=== PATIENT | female | born 1955 | race Caucasian/White ===

== ENCOUNTER 2022-06-27 10:54 | Outpatient (CLI) | payer MEDICARE, SELFPAY ==
[2022-06-27 09:36] LABS: Albumin* 4.7 g/dL (3.3-5.0)
[2022-06-27 09:37] LABS: Chloride* 105 mmol/L (96-114); Potassium* 4.6 mmol/L (3.6-5.1); Sodium* 139 mmol/L (135-149)
[2022-06-27 09:39] LABS: Bilirubin Total* 0.6 mg/dL (0.1-1.5); Carbon Dioxide* 27 mmol/L (20-32); Cholesterol* 186 mg/dL (90-199); Creatinine* 0.8 mg/dL (0.5-1.5); Estimated Glomerular Filt Rate 81 ml/min; Total Protein* 7.3 g/dL (6.0-8.3)
[2022-06-27 09:40] LABS: Alanine Aminotransferase* 18 U/L (4-35); Alkaline Phosphatase* 73 U/L (40-150); Aspartate Amino Transferase* 21 U/L (12-35); Blood Urea Nitrogen* 11 mg/dL (7-30); Calcium* 9.9 mg/dL (8.4-10.6); Glucose* 92 mg/dL (60-115); HDL Cholesterol* 64 mg/dL (>=50); LDL Cholesterol Calculated 107 mg/dL (<100); Triglycerides* 76 mg/dL (40-149)
[2022-06-27 09:54] LABS: Vitamin D 25 Hydroxy* 50 ng/mL (30-80)
[2022-06-27 10:08] LABS: TSH With Reflex to FT4* 0.491 uIU/mL (0.270-4.200)
== END 2022-06-27 10:55 | disposition home or self-care (01) ==
PROVIDERS: PCP Family Medicine; Visit Provider Family Medicine
DX: E78.5 Hyperlipidemia, unspecified (principal); E03.9 Hypothyroidism, unspecified; M81.0 Age-related osteoporosis without current pathological fracture
CPT/HCPCS: 80053; 80061; 82306; 84443

== ENCOUNTER 2022-07-10 11:10 | Outpatient (CLI) | payer MEDICARE, BC, SELFPAY ==
--- NOTE | 2022-07-10 11:30 | CRLHL7_ITS ---
For Patients: As a result of the Century Cures Act, medical imaging exams and procedure reports are released immediately into your electronic medical record. You may view this report before your referring provider. If you have questions, please contact your health care provider. BILATERAL SCREENING MAMMOGRAM WITH COMPUTER-AIDED DETECTION AND TOMOSYNTHESIS TECHNIQUE: CC and MLO views were obtained. These mammographic images have been obtained using full-field digital technique. These mammographic images were interpreted with the benefit of computer-aided detection. Breast Tomosynthesis was used in this interpretation. COMPARISON FILM: 06/30/21, 06/29/20, 04/21/19. FINDINGS: The breasts are heterogeneously dense, which may obscure small masses IMPRESSION: There is no radiographic evidence for malignancy. ASSESSMENT: BI-RADS Category 1: Negative RECOMMENDATION: Routine screening mammogram in 1 year. A lay language report of this examination will be provided to the patient. Parker Mckeon M.D. Diagnostic Radiologist [email or web address] MAREK/Dictated by: Parker Mckeon MD @ 07/10/2022 12:09:00 PM (Electronically Signed)
== END 2022-07-10 11:11 | disposition home or self-care (01) ==
LOC: MAMMO 11:12
PROVIDERS: PCP Family Medicine; Visit Provider Family Medicine
DX: Z12.31 Encounter for screening mammogram for malignant neoplasm of breast (principal); R92.2 Inconclusive mammogram
CPT/HCPCS: 77063; 77067

== ENCOUNTER 2023-07-11 16:15 | Outpatient (CLI) | payer MEDICARE, BC, SELFPAY | END 2023-07-11 16:16 | disposition home or self-care (01) | LOC: NFLDREF 07-12 05:52 | PROVIDERS: PCP Family Medicine; Referring Provider Family Medicine; Visit Provider Family Medicine | DX: Z00.00 Encounter for general adult medical examination without abnormal findings (principal); E03.9 Hypothyroidism, unspecified; E78.5 Hyperlipidemia, unspecified; M81.0 Age-related osteoporosis without current pathological fracture; R53.83 Other fatigue; E55.9 Vitamin D deficiency, unspecified; Z86.39 Personal history of other endocrine, nutritional and metabolic disease | CPT/HCPCS: 80061; 82306; 84439; 84443 ==

== ENCOUNTER 2023-08-01 14:29 | Outpatient (CLI) | payer MEDICARE, BC, SELFPAY ==
--- OUTSIDE RECORDS SUMMARY | 2023-08-01 14:32 | XMS_ITS | Clinical Summary ---
Author Name Unknown Organization [facility] Address [place], [place] [address] Care Team Providers Care Tour Leader Name Role Phone Maria G Lee MD Primary Care Provider + Allergies Active Allergy Reactions Criticality Noted Date Comments Propoxyphene N-Acetaminophen Throat Swelling/Closing 07/21/2009 [place] Oil Edema 03/01/2015 Eyes swelled shut Medications Medication Sig Dispensed Refills Start Date End Date Status ARMOUR THYROID 90 mg tabletIndications:Hypo thyroidism, unspecified type TAKE 1 TABLET BY MOUTH DAILY 90 tablet 0 02/13/2016 Active atorvastatin (Lipitor) 10 mg tabletIndications:Hist ory of colon polyps Take 1 Tablet (10 mg) by mouth once daily. 0 07/19/2021 Active Active Problems Problem Noted Date Diagnosed Date Colon polyp 07/20/2021 Overview: Colonoscopy 07/2021 TA, long colon, repeat in 7 years, propofol and colowrap Graves disease 03/01/2015 Acquired hypothyroidism 03/01/2015 Immunizations Name Administration Dates Next Due Tdap 04/16/2012 Family History Medical History Relation Name Comments Cancer Father basal cell carc inoma Hypertension Father Hypertension Mother Relation Name Status Comments Father Alive Mother Alive Social History Tobacco Use Types Packs/Day Years Used Date Smoking Tobacco: Never Smokeless Tobacco: Never Alcohol Use Standard Drinks/Week Comments Yes 0 (1 standard drink = 0.6 oz pur e alcohol) 1 per week Sex and Gender Information Value Date Recorded Sex Assigned at Not on file Gender Identity Not on file Sexual Orientation Not on file Obstetrics History Last Filed Vital Signs Vital Sign Reading Time Taken Comments Blood Pressure 108/66 03/01/2015 9:17 AM CDT Pulse 72 03/01/2015 9:17 AM CDT Temperature - - Respiratory Rate - - Oxygen Saturation - - Inhaled Oxygen Concentration - - Weight 59.9 kg (132 lb) 03/01/2015 9:17 AM CDT Height 162.6 cm (5' 4.02) 03/01/2015 9:17 AM CD T Body Mass Index 22.65 03/01/2015 9:17 AM CDT Plan of Treatment Health Maintenance Due Date Last Done Comments Depression screening for age 12+ 1967 BMI (ht and wt on same day) for age 18+ 12/23/1973 Hepatitis C screening for ag e 18-79 12/23/1973 Lipids for age 45-75 12/23/2000 Zoster (shingles) series for age 50+ (1 of 2) 12/23/2005 Mammogram for age 45-75 01/22/2017 01/23/2016, 12/02 DEXA/DXA scan for age 65+ 12/23/2020 Medicare Wellness for age 65+ 12/23/2020 Pneumococcal series for age 65+ (1 of 1 - PCV) 12/23/2020 Tetanus booster 04/16/2022 04/16/2012 COVID-19 vaccine series (2022- season) 2023 05/04/2021, 10/25/2020, 10/04/2020 Influenza for age 65+ 03/15/2023 Colonoscopy through age 75 07/19/202807/19, 07/19/2021, 04/25/2016, Additional history exists Tdap Completed 04/16/2012 Care Teams Tour Leader Relationship Specialty Start Date End Date Maria G Lee MD [address] [place] [address] PCP - General Family Practice 07/19/21
--- NOTE | 2023-08-01 14:40 | CRLHL7_ITS ---
For Patients: As a result of the Century Cures Act, medical imaging exams and procedure reports are released immediately into your electronic medical record. You may view this report before your referring provider. If you have questions, please contact your health care provider. BILATERAL SCREENING MAMMOGRAM WITH COMPUTER-AIDED DETECTION AND TOMOSYNTHESIS TECHNIQUE: CC and MLO views were obtained. These mammographic images have been obtained using full-field digital technique. These mammographic images were interpreted with the benefit of computer-aided detection. Breast Tomosynthesis was used in this interpretation. COMPARISON FILM: 07/10/22, 06/30/21, 06/29/20. FINDINGS: The breasts are heterogeneously dense, which may obscure small masses. IMPRESSION: There is no radiographic evidence for malignancy. ASSESSMENT: BI-RADS Category 1: Negative RECOMMENDATION: Routine screening mammogram in 1 year. A lay language report of this examination will be provided to the patient. Parker Mckeon M.D. Diagnostic Radiologist [email or web address] SP/Dictated by: Parker Mckeon MD @ 08/02/2023 11:00:00 AM (Electronically Signed)
== END 2023-08-01 14:30 | disposition home or self-care (01) ==
LOC: MAMMO 14:30
PROVIDERS: PCP Family Medicine; Visit Provider Family Medicine
DX: Z12.31 Encounter for screening mammogram for malignant neoplasm of breast (principal); R92.2 Inconclusive mammogram
CPT/HCPCS: 77063; 77067

== ENCOUNTER 2023-09-04 19:18 | Outpatient (CLI) | payer MEDICARE, BC, SELFPAY ==
--- OUTSIDE RECORDS SUMMARY | 2023-09-04 19:20 | XMS_ITS | Clinical Summary ---
Author Name Unknown Organization [facility] Address [place], [place] [address] Care Team Providers Care Quality Systems Engineer Name Role Phone Maria G Lee MD Primary Care Provider + Allergies Active Allergy Reactions Criticality Noted Date Comments Propoxyphene N-Acetaminophen Throat Swelling/Closing 07/21/2009 [place] Oil Edema 03/01/2015 Eyes swelled shut Medications [...] history exists Tdap Completed 04/16/2012 Care Teams Quality Systems Engineer Relationship Specialty Start Date End Date Maria G Lee MD [address] [place] [address] PCP - General Family Practice 07/19/21
--- NOTE | 2023-09-18 13:23 | W.PM.SLEEP ---
Sleep Study Details Details Interpreting Provider: Lamine Date of Sleep Study: 09/04/23 Sleep Study Details: STUDY TYPE:? Home unattended. It is not clear from the notes if this study was done with or without the patient's dental appliance in place ? BMI:? BMI 23.9 ORDERING PROVIDER:? Lamine INDICATION:? Concerns about sleep apnea ? SLEEP SUMMARY:? 428.5 minutes monitored RESPIRATORY SUMMARY:? AHI rule 1A 9.5, CMS guideline 8.1. Supine AHI 22.1, right lateral 10.1, left lateral 4.9 Low oxygen 87 1.7% of study oxygen less than 90% Snoring 24.2% PERIODIC LIMB MOVEMENTS OF SLEEP:? Not recorded during home study CARDIAC:? Range 60-91, mean 69.5 IMPRESSION:? Mild obstructive sleep apnea much worse in the supine position. The patient's left best in the lateral position with the AHI was only 4.9 RECOMMENDATION: Treatment options would include sleeping in left lateral position, CPAP AutoSet 4-17 or possibly a new dental appliance.
--- NOTE | 2023-10-30 09:03 | W.PM.SLEEP ---
Sleep Study Details Details Interpreting Provider: Lamine Date of Sleep Study: 09/04/23 Sleep Study Details: STUDY TYPE:? This is a 2 night study the 1st night done without appliance in the 2nd night down with appliance ? BMI:? 23.9 ORDERING PROVIDER:? Lamine INDICATION:? To determine baseline level of sleep apnea to see if appliance is working ? SLEEP SUMMARY:? Without appliance 428.5 minutes, with appliance for and 27.6 minutes RESPIRATORY SUMMARY:? AHI without appliance 8.1, AHI with appliance 6.7 Supine AHI without appliance 22 with appliance 14.7 Low oxygen without appliance 87, with appliance 82 1.7% of the study without appliance oxygen was below 90%, 8.3% of study with appliance oxygen was below 90% Snoring without appliance 24.2%, with appliance 2.8% PERIODIC LIMB MOVEMENTS OF SLEEP:? Not recorded during home study CARDIAC: Range of 60-91, mean 69.5 this was similar both with and without the appliance name IMPRESSION:? Mild supine dependent obstructive sleep apnea persists both with and without appliance. Snoring was markedly diminished by appliance from 24.2% without appliance to 2.8% with appliance. RECOMMENDATION: Recommend trial of CPAP either with or without her dental appliance in place.
== END 2023-09-05 19:19 | disposition home or self-care (01) ==
LOC: SLEEP 19:19
PROVIDERS: PCP Family Medicine; Visit Provider Otolaryngology
DX: G47.33 Obstructive sleep apnea (adult) (pediatric) (principal); R06.83 Snoring
CPT/HCPCS: 95806

== ENCOUNTER 2023-11-11 07:56 | Outpatient (CLI) | payer MEDICARE, BC, SELFPAY ==
--- OUTSIDE RECORDS SUMMARY | 2023-11-13 07:09 | XMS_ITS | Clinical Summary ---
Author Name Unknown Organization [facility] Address [place], [place] [address] Care Team Providers Care Gas Meter Mechanic Name Role Phone Maria G Lee MD Primary Care Provider + Allergies Active Allergy Reactions Criticality Noted Date Comments Propoxyphene N-Acetaminophen Throat Swelling/Closing 07/21/2009 [place] Oil Edema 03/01/2015 Eyes swelled shut Medications [...] Tetanus booster 04/16/2022 04/16/2012 COVID-19 vaccine series (2022-24 season) 2023 05/04/2021, 10/25/2020, 10/04/2020 Influenza for age 65+ 03/15/2024 Colonoscopy through age 75 07/19/202807/19, 07/19/2021, 04/25/2016, Additional history exists Tdap Completed 04/16/2012 Procedures Procedure Name Priority Date/Time Associated Diagnosis Comments COLONOSCOPY 07/19/2021 8:53 AM BUSINESS SUPPORT ADMINISTRATOR SCAN-MAMMOGRAPHY REPORT 01/23/2016 12:00 AM CDT from Last 3 Months or Most Recently Relevant to Health Maintenance Results * COLONOSCOPY (07/19/2021 8:53 AM BUSINESS SUPPORT ADMINISTRATOR) 07/19/2021 8:53 AM BUSINESS SUPPORT ADMINISTRATOR Narrative Transcriptions Eddie Stewart MD - 07/19/2021 10:33 AM CST Patient Name: Acacia Weaver Procedure Date: 07/19/2021 Gender: Female Date of : 1955 Admit Type: Outpatient Procedure: Colonoscopy Proceduralist: Eddie Stewart MD , Lupe Pelaez RN(Nurse) Indications/Pre-Op Diagnosis: High risk colon cancer surveillance:Personal history of adenoma less than 10 mm in size, Last colonoscopy: April 2016 Medications: Fentanyl 150 micrograms IV, Midazolam 4 mgIV, The level of sedation administered wasmoderate Procedure Description: The patient had risks, benefits and alternatives explained to andgave informed consent. The patient had a stable cardiopulmonary status and judged an adequate candidate for conscious sedation. The colonoscope was passed through the anus and advanced to thececum, identified by appendiceal orifice and ileocecal valve. Thecolonoscopy was performed without difficulty. The patient tolerated the procedure well. The quality of the bowel preparation was good. The ileocecal valve, appendiceal orifice, and rectum were photographed. Complications: No immediate complications. Estimated Blood Loss & Specimen: Estimated blood loss: none. Specimen collected - Yes and sent to Laboratory Findings: The perianal and digital rectal examinations were normal. A 3 mm polyp was found in the ascending colon. The polyp was sessile. The polyp was removed with a cold biopsy forceps. Resection and retrieval were complete. The colon (entire examined portion) was significantly redundant. The exam was otherwise without abnormality. Impressions/Post-Op Diagnosis: - One 3 mm polyp in the ascending colon, removed with a cold biopsy forceps. Resected and retrieved. - Redundant colon. - The examination was otherwise normal. Recommendation: - Patient has a contact number available for emergencies. The signsand symptoms of potential delayed complications were discussed with the patient. Return to normal activities tomorrow. Written discharge instructions were provided to the patient. - Resume previous diet. - Continue present medications. - Await pathology results. - Repeat colonoscopy in 7 years for surveillance. - Patient's sedation for a repeat study will require Anesthesia staff assistance and a colwrap. Moderate Sedation: Moderate (conscious) sedation was administered by the endoscopy nurse and supervised by the endoscopist. The following parameters were monitored: oxygen saturation, heart rate, respiratory rate, blood pressure, adequacy of pulmonary ventilation and reponse to care. Please refer to the patient's medical record flowsheets and nursing notes for moderate sedation details. Total physician intraservice time was 38 minutes. Eddie Stewart MD 07/19/2021 10:33:20 AM This report has been signed electronically. Note Initiated On: 07/19/2021 8:53 AM Procedure Code(s): --- Professional --- 32525, Colonoscopy, flexible; with biopsy, single or multiple Diagnosis Code(s): --- Professional --- Z86.010, Personal history of colonicpolyps K63.5, Polyp of colon Q43.8, Other specified congenitalmalformations of intestine CPT copyright 2020 [employer]. All rights reserved. The codes documented in this report are preliminary and upon food quality tester reviewmay be revised to meet current compliance requirements. Scope In: 9:51:43 AM Scope Withdrawal Time 0 hours 8 minutes 2 seconds Scope Out: 10:28:43 AM Eddie Stewart MD PROCEDURE ORD * SCAN-MAMMOGRAPHY REPORT (01/23/2016 12:00 AM CDT) Anatomical Region Laterality Modality Other Scanner OTHER from Last 3 Months or Most Recently Relevant to Health Maintenance Care Teams Gas Meter Mechanic Relationship Specialty Start Date End Date Maria G Lee MD [address] [place] [address] PCP - General Family Practice 07/19/21
== END 2023-11-11 07:57 | disposition home or self-care (01) ==
LOC: NFLDREF 11-13 07:08
PROVIDERS: PCP Family Medicine; Referring Provider Family Medicine; Visit Provider Family Medicine
DX: E03.9 Hypothyroidism, unspecified (principal)
CPT/HCPCS: 84439; 84443

== ENCOUNTER 2024-02-11 08:03 | Outpatient (CLI) | payer MEDICARE, BC, SELFPAY ==
--- OUTSIDE RECORDS SUMMARY | 2024-02-12 04:45 | XMS_ITS | Clinical Summary ---
Author Organization [facility] Address [place], [place] [address] Care Team Providers Care Wax Pattern Repairer Name Role Phone Maria G Lee MD Primary Care Provider + Allergies Active Allergy Reactions Criticality Noted Date Comments Propoxyphene N-Acetaminophen Throat Swelling/Closing 07/21/2009 [place] Oil Edema 03/01/2015 Eyes swelled shut Medications [...] Associated Diagnosis Comments COLONOSCOPY 07/19/2021 8:53 AM JET WORKER SCAN-MAMMOGRAPHY REPORT 01/23/2016 12:00 AM CDT from Last 3 Months or Most Recently Relevant to Health Maintenance Results * COLONOSCOPY (07/19/2021 8:53 AM JET WORKER) 07/19/2021 8:53 AM JET WORKER Narrative Transcriptions Eddie Stewart MD - 07/19/2021 [...] 8:53 AM Procedure Code(s): --- Professional --- 93416, Colonoscopy, flexible; with biopsy, single or multiple Diagnosis Code(s): --- Professional --- Z86.010, Personal history of colonicpolyps K63.5, Polyp of colon Q43.8, Other specified congenitalmalformations of intestine CPT copyright 2020 [place] [employer]. All rights reserved. The codes documented in this report are preliminary and upon computer language coder reviewmay be revised to meet current compliance requirements. Scope In: 9:51:43 AM Scope Withdrawal Time 0 hours 8 minutes 2 seconds Scope Out: 10:28:43 AM Eddie Stewart MD PROCEDURE ORD * SCAN-MAMMOGRAPHY REPORT (01/23/2016 12:00 AM CDT) Anatomical Region Laterality Modality Other Scanner OTHER from Last 3 Months or Most Recently Relevant to Health Maintenance Care Teams Wax Pattern Repairer Relationship Specialty Start Date End Date Maria G Lee MD [address] [place] [address] PCP - General Family Practice 07/19/21
== END 2024-02-11 08:04 | disposition home or self-care (01) ==
LOC: NFLDREF 02-12 04:43
PROVIDERS: PCP Family Medicine; Referring Provider Family Medicine; Visit Provider Family Medicine
DX: E03.9 Hypothyroidism, unspecified (principal); E78.5 Hyperlipidemia, unspecified
CPT/HCPCS: 80061; 84439; 84443

== ENCOUNTER 2024-07-16 08:10 | Outpatient (CLI) | payer MEDICARE, BC, SELFPAY | END 2024-07-16 08:11 | disposition home or self-care (01) | LOC: NFLDREF 07-18 19:37 | PROVIDERS: PCP Family Medicine; Referring Provider Family Medicine; Visit Provider Family Medicine | DX: R53.83 Other fatigue (principal); E78.5 Hyperlipidemia, unspecified; E03.9 Hypothyroidism, unspecified; E55.9 Vitamin D deficiency, unspecified; M81.0 Age-related osteoporosis without current pathological fracture | CPT/HCPCS: 80053; 80061; 82306; 84443 ==

== ENCOUNTER 2024-08-06 10:04 | Outpatient (CLI) | payer MEDICARE, BC, SELFPAY ==
--- NOTE | 2024-08-06 10:15 | CRLHL7_ITS ---
For Patients: As a result of the Century Cures Act, medical imaging exams and procedure reports are released immediately into your electronic medical record. You may view this report before your referring provider. If you have questions, please contact your health care provider. BILATERAL SCREENING MAMMOGRAM WITH COMPUTER-AIDED DETECTION AND TOMOSYNTHESIS TECHNIQUE: CC and MLO views were obtained. These mammographic images have been obtained using full-field digital technique. These mammographic images were interpreted with the benefit of computer-aided detection. Breast Tomosynthesis was used in this interpretation. COMPARISON FILM: 08/01/23, 07/10/22, 06/30/21. FINDINGS: The breasts are heterogeneously dense, which may obscure small masses. IMPRESSION: There is no radiographic evidence for malignancy. ASSESSMENT: BI-RADS Category 1: Negative RECOMMENDATION: Routine screening mammogram in 1 year. A lay language report of this examination will be provided to the patient. Pradeep Ahumada M.D. Diagnostic/Nuclear Medicine Radiologist [email or web address] SARINA/matilda SP/Dictated by: Pradeep Ahumada MD @ 08/06/2024 11:39:00 AM (Electronically Signed)
--- NOTE | 2024-08-06 14:00 | CRLHL7_ITS ---
For Patients: As a result of the Century Cures Act, medical imaging exams and procedure reports are released immediately into your electronic medical record. You may view this report before your referring provider. If you have questions, please contact your health care provider. XR DXA BONE MINERAL DENSITY (BMD) Current height (in): 63.0. Weight (lb): 140.0. Menopause age: 45. Ethnicity: White. Reason for exam: Osteoporosis. 1. Have you had a previous hip or vertebral fracture? No. 2. Have you had any fractures during your adult life which did not result from significant trauma (e.g., auto accident)? No. 3. Did either of your parents have a hip fracture? No. 4. Do you smoke? No. 5. Have you ever taken Glucocorticoids? No. 6. Do you have rheumatoid arthritis? No. 7. Do you have secondary osteoporosis? No. 8. Do you drink 3 or more alcoholic drinks per day? No. 9. Are you being treated for osteoporosis? No. 10. Have you ever taken any of the following medications: Actonel, Evista, Fosamax, Miacalcin, Reclast, Boniva, Forteo, HRT (i.e. estrogen/hormone therapy), Protelos, Prolia, Vitamin D, Calcium, other ??? please specify. ANSWER: Yes, Fosamax, vitamin D. 11. Do you have any of the following medical conditions: Anorexia or bulimia, asthma or emphysema, end stage renal disease, hyperparathyroidism, any seizure disorders, cancer, inflammatory bowel diseases, hysterectomy, other ??? please specify. ANSWER: No. 12. What was your maximum height (inches)? 63. 13. Do you perform weight bearing exercise regularly? Yes. 14. Do you regularly consume dairy products? No. 15. Do you drink caffeinated beverages? No. 16. At what age did your period start? 13. 17. Are you premenopausal? No. 18. How many full-term pregnancies have you had? 2. 19. Have you ever missed your period for more than 6 months in a row (not including or menopause)? No. TECHNIQUE: Bone mineral density study was performed using the [employer]. FINDINGS: The results of the study expressed as bone mineral density (BMD) are as follows: Lumbar spine L1 to L4: BMD: 0.801 g/cm2. T-score: -2.2. Z-score: -0.2 Neck Left: BMD: 0.564 g/cm2. T-score: -2.6. Z-score: -0.9 Right: BMD: 0.585 g/cm2. T-score: -2.4. Z-score: -0.7 Total Left: BMD: 0.791 g/cm2. T-score: -1.2. Z-score: 0.2 Right: BMD: 0.852 g/cm2. T-score: -0.7. Z-score: 0.7 IMPRESSION: Osteoporosis. *Comparison exams done prior to 12/2019 were performed on different unit, [facility]. COMPARISON: Compared with scan of 06/29/2020, the bone mineral density has decreased by 4.7 percent at the spine and increased by 7.1 percent at the hip. Reina Baker M.D. Diagnostic/Breast Radiologist [email or web address] Transcribed: 9:54 am DW/Dictated by: Reina Baker MD @ 08/07/2024 7:28:00 AM (Electronically Signed)
== END 2024-08-06 10:05 | disposition home or self-care (01) ==
LOC: MAMMO 10:05
PROVIDERS: PCP Family Medicine; Visit Provider Family Medicine
DX: Z12.31 Encounter for screening mammogram for malignant neoplasm of breast (principal); R92.333 Mammographic heterogeneous density, bilateral breasts; M81.0 Age-related osteoporosis without current pathological fracture
CPT/HCPCS: 77063; 77067; 77080

== ENCOUNTER 2024-08-14 08:46 | Outpatient (RCR) | payer MEDICARE, BC, SELFPAY ==
--- NOTE | 2024-08-12 10:22 | URNOTE ---
Request received for authorization for Reclast ([id number]). Prior authorization is not required as services are based on medical necessity and follow Medicare guidelines.
[2024-08-14 08:54] VITALS: BP 124/79; PULSE 86; RESP 16; TEMP 36.4; O2SAT 96
== END 2025-02-10 23:59 | disposition home or self-care (01) ==
LOC: CCIC 08:46
PROVIDERS: PCP Family Medicine; Visit Provider Clinical Nurse Specialist
DX: M81.0 Age-related osteoporosis without current pathological fracture (principal)
CPT/HCPCS: 96374; J3489

== ENCOUNTER 2024-10-23 14:07 | Emergency (ER) | payer MEDICARE, BC, SELFPAY ==
[2024-10-23] VITALS (13 sets, daily range): BP systolic 146–156; BP diastolic 88–104; PULSE 82–95; RESP 18; TEMP 36.2; O2SAT 90–99; BMI 24.8
--- OUTSIDE RECORDS SUMMARY | 2024-10-23 14:09 | XMS_ITS | Clinical Summary ---
Author Organization [facility] Address [address] [place] [id number] Care Team Providers Care Office Nurse Practitioner Name Role Phone Maria G Lee MD Primary Care Provider + Allergies Active Allergy Reactions Criticality Noted Date Comments Propoxyphene N-Acetaminophen Throat Swelling/Closing 07/21/2009 [place] Oil Edema 03/01/2015 Eyes swelled shut Medications ARMOUR THYROID 90 mg tabletIndication s:Hypothyroidism , unspecified type TAKE 1 TABLET BY MOUTH DAILY 90 tablet 0 02/13/2016 Active atorvastatin (Lipitor) 10 mg tabletIndication s:History of colon polyps Take 1 Tablet (10 mg) by mouth once daily. 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 file Not on file Not on file Obstetrics History Last Filed [...] 18-79 12/23/1973 Lipids for age 45-75 12/23/2000 Pneumococcal series for age 50+ (1 of 1 - PCV) 12/23/2005 Zoster (shingles) series for age 50+ (1 of 2) 12/23/2005 Mammogram for age 45-75 01/22/2017 01/23/2016, 12/02 DEXA/DXA scan for age 65+ 12/23/2020 Medicare Wellness for age 65+ 12/23/2020 Tetanus booster 04/16/2022 04/16/2012 COVID-19 vaccine series ( season) 2024 05/04/2021, 10/25/2020, 10/04/2020 Influenza Vaccine (Season Ended) 2025 Colonoscopy through age 75 07/19/202807/19, 07/19/2021, 04/25/2016, Additional history exists RSV vaccine for adults or (1 - 1-dose 75+ series) 12/23/2030 Tdap Completed 04/16/2012 Procedures Procedure Name Priority Date/Time Associated Diagnosis Comments COLONOSCOPY 07/19/2021 8:53 AM HOSPITAL ADMINISTRATIVE ASSISTANT SCAN-MAMMOGRAPHY REPORT 01/23/2016 12:00 AM CDT from Last 3 Months or Most Recently Relevant to Health Maintenance Results * COLONOSCOPY (07/19/2021 8:53 AM HOSPITAL ADMINISTRATIVE ASSISTANT) 07/19/2021 8:53 AM HOSPITAL ADMINISTRATIVE ASSISTANT Narrative Transcriptions Eddie Stewart MD - 07/19/2021 10:33 AM CST Patient Name: Zay Weaver Procedure Date: 07/19/2021 Gender: Female Date [...] 8:53 AM Procedure Code(s): --- Professional --- 69815, Colonoscopy, flexible; with biopsy, single or multiple Diagnosis Code(s): --- Professional --- Z86.010, Personal history of colonicpolyps K63.5, Polyp of colon Q43.8, Other specified congenitalmalformations of intestine CPT copyright 2020 [employer] [place] [employer]. All rights reserved. The codes documented in this report are preliminary and upon extraction machine operator reviewmay be revised to meet current compliance requirements. Scope In: 9:51:43 AM Scope Withdrawal Time 0 hours 8 minutes 2 seconds Scope Out: 10:28:43 AM us Eddie Stewart MD PROCEDURE ORD Final Res ult * SCAN-MAMMOGRAPHY REPORT (01/23/2016 12:00 AM CDT) Anatomical Region Laterality Modality Other us Scanner OTHER Final Result from Last 3 Months or Most Recently Relevant to Health Maintenance Insurance PREFERRED ONE-OPEN ACCESS BLUE CROSS [employer] BLUE MR PB ONLY Care Teams Office Nurse Practitioner Relationship Specialty Start Date End Date Maria G Lee MD [address] [place] [address] PCP - General Family Practice 07/19/21
--- NOTE | 2024-10-23 14:21 | ED.GENADULT ---
HPI - General Adult General Time Seen by Provider: 14:21 Date Seen: 10/23/24 Chief complaint: Shoulder Injury/Pain Stated complaint: Fell off Horse Time Seen by Provider: 10/23/24 14:11 Source: patient and RN notes reviewed Mode of arrival: ambulatory Limitations: no limitations History of Present Illness HPI narrative: This 68-year-old female is coming in with right shoulder/clavicle pain. She thinks she may have broke her clavicle falling off her horse. About an hour prior to her arrival, she was riding her 14 hand bony/hoarse. He spoke did something, move sideways abruptly and she went off landing on her right shoulder. She was wearing a helmet, no loss of consciousness, no head pain, no facial or neck pain. She is having no difficulty breathing, no significant pain with breathing outside of pain in the right upper chest wall. No numbness tingling in her hand. She does not have pain into the right extremity at all. No abdominal pain, did not injure her left arm or legs at all. She is not on any blood thinners. Related Data Home Medications ?Medication ?Instructions ?Recorded ?Confirmed Lactobacillus acidophilus 10 mg PO QDAY 07/03/22 08/14/24 cholecalciferol (vitamin D3) 10 10 mcg PO QDAY 07/03/22 08/14/24 mcg (400 unit) capsule krill oil 500 mg capsule mg PO 07/03/22 07/23/24 multivitamin (Multiple Vitamins 1 tab PO QAM 07/03/22 08/14/24 tablet) Previous Rx's ?Medication ?Instructions ?Recorded atorvastatin 10 mg tablet 10 mg PO .Bedtime #90 tabs 07/23/24 levothyroxine 125 mcg tablet 125 mcg PO DAILY #90 tabs 07/23/24 oxycodone 5 mg tablet 5 mg PO Q6H PRN pain #10 tabs 10/23/24 Allergies Allergy/AdvReac Type Severity Reaction Status Date / Time propoxyphene Allergy Severe Anaphylaxis Verified 08/14/24 09:06 salmon oil Allergy Intermediate eye Verified 08/14/24 09:06 swelling SALMON Allergy Unknown Swelling Uncoded 07/23/24 09:29 of the Eye Review of Systems Status of ROS: Reports: 6 or more systems reviewed and unremarkable except as noted in History and below [facility] Medical History Vitamin D deficiency ?E55.9 - Vitamin D deficiency, unspecified (ICD-10) Persistent insomnia ?G47.00 - Insomnia, unspecified (ICD-10) Osteoporosis (07/2018) ?M81.0 - Age-related osteoporosis without current pathological fracture (ICD-10) Obstructive sleep apnea syndrome (2013) ?G47.33 - Obstructive sleep apnea (adult) (pediatric) (ICD-10) History of Graves' disease (2001) ?Z86.39 - Personal history of other endocrine, nutritional and metabolic disease (ICD-10) History of basal cell carcinoma (2013) ?Z85.828 - Personal history of other malignant neoplasm of skin (ICD-10) Dyslipidemia ?E78.5 - Hyperlipidemia, unspecified (ICD-10) Acquired hypothyroidism ?E03.9 - Hypothyroidism, unspecified (ICD-10) Surgical History History of radioactive iodine thyroid ablation (2001) ?Z92.3 - Personal history of irradiation (ICD-10) History of decompression of orbit (2002) ?Z98.890 - Other specified postprocedural states (ICD-10) History of colonoscopy with polypectomy (2012) ?Z98.890 - Other specified postprocedural states (ICD-10) ?Z86.010 - Personal history of colonic polyps (ICD-10) History of carpal tunnel release of both wrists ?Z98.890 - Other specified postprocedural states (ICD-10) History of benign breast biopsy ?Z98.890 - Other specified postprocedural states (ICD-10) Family History Father Atrial fibrillation Maternal Grandmother Breast cancer, Onset Age: 50 Maternal Grandfather Myocardial infarction, Onset Age: 60 Paternal Grandfather Myocardial infarction, Onset Age: 60 Mother Osteoarthritis Social History 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: , RN, 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[employer], 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, 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 exercises daily- daily takes care of 3 horses n(Ivan, Dean, daughters [place]), [employer] gym, swim, , walks every day 4-5 miles non-smoker social drinker- 1-2/week What is your current living situation?: I presently have a place to live Problems where you live: no known problems In the past 12 months, utilities in danger of being shut off: no In past 12 months, lack of transportation kept you from medical appts, meetings, work, or getting things needed for daily living: no In the past 12 mos, have been you worried that your food would run out before you had money to buy more?: never true In the past 12 mos, the food you bought just didn't last and you didn't have money to buy more?: never true Smoking Status: Never smoker How often does anyone, including family, friends and others, physically hurt you: never How often does anyone, including family, friends and others, insult or talk down to you: never How often does anyone, including family, friends and others, threaten you with harm: never How often does anyone, including family, friends and others, scream or curse at you: never Exam Const: Vital Signs, click to edit/add: Vital Signs - 24 hr 10/23/24 14:11 10/23/24 14:19 10/23/24 14:20 Temperature 97.1 F L Pulse Rate 89 88 Pulse Rate [Pulse Oximeter] 95 Respiratory Rate 18 Blood Pressure 153/95 H Blood Pressure [Le ft Upper Arm] 153/95 H Pulse Oximetry 98 94 96 Oxygen Delivery Me thod Room Air 10/23/24 14:21 10/23/24 14:21 10/23/24 14:30 Temperature Pulse Rate 90 90 86 Pulse Rate [Pulse Oximeter] Respiratory Rate Blood Pressure 150/88 H 150/88 H Blood Pressure [Le ft Upper Arm] Pulse Oximetry 98 98 90 Oxygen Delivery Me thod 10/23/24 14:40 10/23/24 14:45 Temperature Pulse Rate 84 85 Pulse Rate [Pulse Oximeter] Respiratory Rate Blood Pressure Blood Pressure [Le ft Upper Arm] Pulse Oximetry 95 96 Oxygen Delivery Me thod Zya is a 68-year-old female that is alert, interactive, no apparent distress. Sclera clear, conjugate gaze. Face atraumatic, able to speak in complete sentences. No midline tenderness of her neck, neck is supple with good range of motion. No masses or adenopathy. She has visible bruising and swelling starting in that right upper chest wall, could be overlying the distal clavicle. She does not have any pain around the glenohumeral fossa at this time. No pain along the upper arm, elbow forearm wrist or hand on the right side. Neurovascular is intact in her right extremity. Lungs are clear, good air entry, no wheezing or crackles, no tachypnea, no accessory muscle use. CV regular rate and rhythm, no murmur, normal S1-S2, no S3-S4. No pain along her sternum. Abdomen is soft, nontender, nondistended, no organomegaly, rebound or guarding. Patient was ambulatory into the ED of her own accord. Documenting provider has reviewed patient's vital signs: yes Course Course ED Course: Will obtain portable chest x-ray to see imaging of this upper chest. Have discussed with patient and her based on what I see on the imaging, may order chest CT. If there is any appearance upper rib fractures, will need chest CT imaging. Reevaluation(s) Time of Reevaluation #1: 14:44 Reevaluation #1: Patient has obvious clavicle fracture, do not see other bony pathology in this upper chest wall on my preliminary review. Will get dedicated clavicle imaging at this time. Time of Reevaluation #2: 15:00 Reevaluation #2: Patient was complaining of increased pain after going to x-ray. She had toast for breakfast, ate a Eugenie around lunch time but otherwise really has not ate much today. Outside of using some Tylenol No. 3, really has not taken much for pain meds in the past. Will do a trial of 2.5 mg oral oxycodone and a 1000 mg oral Tylenol, see if she tolerates the oxycodone. Will also premedicate with some Zofran. Consultations Consultation #1: Spoke with Pato Delgado from Orthopedics. Will have patient follow-up with them next week, he does think that there is a likelihood surgical repair for this. She is currently neurologically intact, no tenting of the skin and does not require any emergent intervention. Sling is been provided. Will update patient on this in prepare for discharge. Will discuss pain management with her as well. Time: 15:31 Vital Signs Vital signs: Initial Vital Signs Temperature 97.1 F L 10/23/24 14:11 Temperature Source Temporal Artery Scan 10/23/24 14:11 Pulse Rate 95 10/23/24 14:11 Respiratory Rate 18 10/23/24 14:11 Blood Pressure 153/95 H 10/23/24 14:11 Blood Pressure Mean 114 H 10/23/24 14:11 Blood Pressure Position Supine 10/23/24 14:11 Pulse Oximetry 98 10/23/24 14:11 Oxygen Delivery Method Room Air 10/23/24 14:11 Vital Signs Temperature 97.1 F L 10/23/24 14:11 Pulse Rate 95 10/23/24 14:11 Respiratory Rate 18 10/23/24 14:11 Blood Pressure 153/95 H 10/23/24 14:11 Pulse Oximetry 98 10/23/24 14:11 Oxygen Delivery Method Room Air 10/23/24 14:11 Temperature 97.1 F L 10/23/24 14:11 Pulse Rate 85 10/23/24 14:45 Respiratory Rate 18 10/23/24 14:11 Blood Pressure 150/88 H 10/23/24 14:21 Pulse Oximetry 96 10/23/24 14:45 Oxygen Delivery Method Room Air 10/23/24 14:11 Medications Administered Medications: Discontinued Medications Generic Name Dose Route Start Last Admin Trade Name Freq PRN Reason Stop Dose Admin Acetaminophen 1,000 mg 10/23/24 15:01 10/23/24 15:17 Acetaminophen 500 Mg Tablet PO 10/23/24 15:02 1,000 mg ONCE ONE Administration Ondansetron HCl 4 mg 10/23/24 15:02 10/23/24 15:17 Ondansetron Odt 4 Mg Tab PO 10/23/24 15:03 4 mg ONCE ONE Administration Oxycodone HCl 2.5 mg 10/23/24 15:01 10/23/24 15:17 Oxycodone 1 Mg/Ml Oral Soln PO 10/23/24 15:02 2.5 mg ONCE ONE Administration Medical Decision Making Imaging Data Chest x-ray: Attestation: I have reviewed the pertinent imaging results. My impression: Right clavicle fracture noted on my preliminary review. Radiologist's impression: Patient: ZAY MORRIS Facility:[facility] Patient ID:?[id number] Site Patient ID:?[id number]. Site :?[id number] Study:?XRay-Chest Portable one view-10/23/2024 2:49:07 PM Ordering Physician:Dilcia Joshua Final Report: INDICATION: Chest pain. TECHNIQUE: Chest 1 views. COMPARISON: None. FINDINGS: Cardiovascular and mediastinum: Heart size and vasculature are normal in caliber and appearance. Lungs and pleural spaces: No sign of infiltrate or mass. No sign of pleural effusion. No pneumothorax. Bones and soft tissues: Acute displaced right mid clavicular fracture with superior elevation of the proximal fragment. IMPRESSION: Acute displaced right mid clavicular fracture with superior elevation of the proximal fracture. No acute cardiopulmonary abnormality. Dictated by Carlos Henry MD @ 10/23/2024 3:09:08 PM (Electronic Signature) XR right clavicle: Attestation: I have reviewed the pertinent imaging results. My impression: Bills visualize, clavicle fracture definitely noted. Radiologist's impression: Patient: ZAY MORRIS Facility:?[facility] Patient ID:?[id number] Site Patient ID:?[id number]. Site :?[id number] Study:?XRay-Extremity Right CLAVICLE 2V-10/23/2024 3:04:33 PM Ordering Physician:Dilcia Joshua Final Report: Indication: Trauma. Technique: Right clavicle, 2 views. Comparison: None. Findings/Impression: Bones: Acute displaced mid right clavicular fracture with superior elevation of the proximal fragment Joint spaces: Moderate degenerative changes of the acromioclavicular joint. Soft tissues: Unremarkable. Dictated by Carlos Henry MD @ 10/23/2024 3:10:09 PM (Electronic Signature) Discharge Plan Discharge Clinical Impression: Clavicle fracture Qualifiers: Encounter type: initial encounter Clavicle location: shaft Fracture type: closed Fracture alignment: displaced Laterality: right Qualified Code(s): S42.021A - Displaced fracture of shaft of right clavicle, initial encounter for closed fracture Patient Disposition: Home, Self-Care Condition: Stable Instructions: Clavicle Fracture (ED) Additional Instructions: Use sling as needed for comfort, continue to ice to help decrease pain and swelling. Can use ibuprofen 600 mg up to 4 times a day for pain, Tylenol 1000 mg 3 times daily baseline for pain. Have written for some oxycodone which is narcotic. If you are needing the narcotic for pain control, consider using MiraLax 17 g daily and adding in senna per package instructions to avoid narcotic associated constipation. Need to contact the orthopedic clinic Saturday morning to get scheduled for follow-up, they will discuss potential surgical correction of this fracture. Phone number for the Orthopedic Clinic is [phone]. Activity Level: Activity as Tolerated Prescriptions: New oxycodone 5 mg tablet 5 mg PO Q6H PRN (Reason: pain) Qty: 10 0RF No Action levothyroxine 125 mcg tablet 125 mcg PO DAILY Qty: 90 3RF atorvastatin 10 mg tablet 10 mg PO .Bedtime Qty: 90 3RF krill oil 500 mg capsule PO multivitamin [Multiple Vitamins] Tablet 1 tab PO QAM Lactobacillus acidophilus Capsule 10 mg PO QDAY cholecalciferol (vitamin D3) 10 mcg (400 unit) capsule 10 mcg PO QDAY Follow Up/Referrals: Maria G Lee MD [Primary Care Provider] - Stand Alone Forms: [employer] Info Instructions
--- NOTE | 2024-10-23 14:26 | CRLHL7_ITS ---
For Patients: As a result of the Cures Act, medical imaging exams and procedure reports are released immediately into your electronic medical record. You may view this report before your referring provider. If you have questions, please contact your health care provider. INDICATION: Chest pain. TECHNIQUE: Chest 1 views. COMPARISON: None. FINDINGS: Cardiovascular and mediastinum: Heart size and vasculature are normal in caliber and appearance. Lungs and pleural spaces: No sign of infiltrate or mass. No sign of pleural effusion. No pneumothorax. Bones and soft tissues: Acute displaced right mid clavicular fracture with superior elevation of the proximal fragment. IMPRESSION: Acute displaced right mid clavicular fracture with superior elevation of the proximal fracture. No acute cardiopulmonary abnormality. Dictated by Carlos Henry MD @ 10/23/2024 3:09:08 PM (Electronically Signed)
--- NOTE | 2024-10-23 14:45 | CRLHL7_ITS ---
For Patients: As a result of the Cures Act, medical imaging exams and procedure reports are released immediately into your electronic medical record. You may view this report before your referring provider. If you have questions, please contact your health care provider. Indication: Trauma. Technique: Right clavicle, 2 views. Comparison: None. Findings/Impression: Bones: Acute displaced mid right clavicular fracture with superior elevation of the proximal fragment Joint spaces: Moderate degenerative changes of the acromioclavicular joint. Soft tissues: Unremarkable. Dictated by Carlos Henry MD @ 10/23/2024 3:10:09 PM (Electronically Signed)
--- OUTSIDE RECORDS SUMMARY | 2024-10-23 15:02 | XMS_ITS | Clinical Summary ---
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 Gender Identity Not on file Sexual Orientation [...] Associated Diagnosis Comments COLONOSCOPY 07/19/2021 8:53 AM AUTOMOTIVE VEHICLE INSPECTOR SCAN-MAMMOGRAPHY REPORT 01/23/2016 12:00 AM CDT from Last 3 Months or Most Recently Relevant to Health Maintenance Results * COLONOSCOPY (07/19/2021 8:53 AM AUTOMOTIVE VEHICLE INSPECTOR) 07/19/2021 8:53 AM 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 All rights reserved. The codes documented in this report are preliminary and upon manager investment banking reviewmay be revised to meet current compliance [...] Maintenance Insurance PREFERRED ONE-OPEN ACCESS BLUE [employer] [place] [employer] PB ONLY Care Teams Continuing Education Director Relationship Specialty Start Date End Date Maria G Lee MD [address] [place] [address] PCP - General Family Practice 07/19/21
[2024-10-23] MEDS: OXYCODONE 1 MG/ML ORAL SOLN 2.5 MG PO (15:17)
[2024-10-23] MEDS: ACETAMINOPHEN 500 MG TABLET 1000 MG PO (15:17)
[2024-10-23] MEDS: ONDANSETRON ODT 4 MG TAB PO (15:17)
== END 2024-10-23 15:48 | disposition home or self-care (01) ==
PROVIDERS: Emergency Provider Family Medicine; PCP Family Medicine
DX: S42.021A Displaced fracture of shaft of right clavicle, initial encounter for closed fracture (principal); V80.010A Animal-rider injured by fall from or being thrown from horse in noncollision accident, initial encounter
CPT/HCPCS: 71045; 73000; 99283; 99284; A9270

== ENCOUNTER 2024-11-02 07:20 | Day surgery (SDC) | payer MEDICARE, BC, SELFPAY ==
[2024-11-02] VITALS (20 sets, daily range): BP systolic 104–140; BP diastolic 52–88; PULSE 70–90; RESP 12–16; TEMP 36.3–36.9; O2SAT 93–97; BMI 26.5
[2024-11-02] MEDS: LACTATED RINGERS 1000 ML 1,000 ML 100 ML IV (07:30)
[2024-11-02] MEDS: SODIUM CHLORIDE 0.9 % (FLUSH) 10 ML SYRINGE IVF (07:44)
--- NOTE | 2024-11-02 08:03 | W.PM.H&PU ---
History & Physical Update History & Physical Update H&P Reviewed and patient assessed: No changes noted
--- NOTE | 2024-11-02 09:15 | CRLHL7_ITS ---
For Patients: As a result of the Cures Act, medical imaging exams and procedure reports are released immediately into your electronic medical record. You may view this report before your referring provider. If you have questions, please contact your health care provider. Indication: Right Clavicle ORIF Technique: Two fluoroscopic images of the right clavicle. Fluoroscopic time 5.3 seconds. IMPRESSION: Fluoroscopic guidance for open reduction internal fixation right clavicle fracture. Dictated by Parker Mckeon MD @ 11/02/2024 1:42:32 PM (Electronically Signed)
[2024-11-02] MEDS: CEFAZOLIN 2 GM in 0.9 % SODIUM CHLORIDE Mini-bag 100 ML IVPB (09:40)
[2024-11-02] MEDS: hydrOXYzine pamoate 25 MG CAPSULE PO (10:52)
[2024-11-02] MEDS: LIDOCAINE 1%-EPI 1:100,000 20 ML INFILTRATI (11:15)
--- NOTE | 2024-11-02 11:29 | P.ORPRC_ITS ---
Procedure Note Date of procedure: 11/02/24 Procedure: PREOPERATIVE DIAGNOSES: 1. Right midshaft clavicle fracture with 120+ percent displacement and 15+ mm of shortening, comminuted, closed, acute. POSTOPERATIVE DIAGNOSES: 1. Right midshaft clavicle fracture with 120+ percent displacement and 15+ mm of shortening, comminuted, closed, acute. NAME OF OPERATION: 1. Right clavicle open reduction and internal fixation 2. 33185 - intraoperative fluoroscopy up to 1 hour. SURGEON: Chucky Saldaña MD STEEL BOX TOE INSERTER: Kal LONG; Shakila Shafer (student) - Of note, an certified teacher assistant was critical for this case to aide in patient positioning, limb manipulation, tissue retraction, awareness of and protection of critical structures, closure, and immobilization application. ANESTHESIA: General IMPLANTS: Arthrex clavicle plate with 3.5 mm nonlocking and locking screws and a single 2.5 mm interfragmentary screw. TOURNIQUET: None. INDICATIONS: The patient is a pleasant, 68-year-old feel who sustained a fall off of a horse landing on her right shoulder. Obvious pain and deformity. X- rays were obtained revealed a displaced, shortened, comminuted midshaft clavicle fracture. FINDINGS: Closed, midshaft clavicle fracture with substantial shortening and displacement. There was a fracture line splitting the distal fragment longitudinally as well seen during the time of surgery. Interfragmentary screw was used to stabilize this prior to stabilizing the main fracture fragment.. PROCEDURE: Following a thorough discussion of risks, benefits, and alternatives, consent was obtained and the operative extremity was marked. The patient was brought to the operating room and placed supine on the operating table. Induction of anesthesia was achieved. Appropriate time out was performed identifying proper patient, site and procedure. 1 g IV Ancef was administered within 1 hour of incision preoperatively. The right upper extremity was prepped and draped in the appropriate sterile fashion using ChloraPrep. The skin was anesthetized with 1% lidocaine with epinephrine for both local anesthesia and hemostasis. Following this, sharp dissection through skin allowed evaluation of crossing neurologic structures. The periosteum was released, and subperiosteal elevation performed. The fracture ends were cleared of interposed muscle and fracture hematoma. The 2 ends were grasped with a lobster claw to help gain length. There also was a butterfly fragment that had no soft tissue connections. This measured approximately 5 x 15 mm and was removed as it had no soft tissue connection. However, after the fracture was reduced, reduction was seen to be excellent. Because of the longitudinal split of the more lateral fragment, a 2.5mm with Whipple type compression screw was utilized to stabilize this fragment prior to reducing the main fracture parts and applying the plate. Thereafter, an 8 hole plate] was selected. It was contoured according to the bone shape. [Cortical nonlocking compression screws were placed on either side of the fracture initially. After confirming proper reduction on C-arm fluoroscopic imaging, a 2nd and 3rd screw was placed on either side of the fracture.] Again C-arm was utilized to confirm proper screw length, fracture reduction, and plate apposition. At this stage, the wound was thoroughly irrigated with normal saline. Closure performed with 0 stratafix for the periosteum/platysma. Closure was then completed with 2-0 Vicryl for the subcutaneous, and 4-0 Monocryl for subcuticular closure. Dressings were applied along with a sling. The patient was awoken from anesthesia and transferred to PACU in stable condition. PLAN: 1. Nonweightbearing operative extremity. 2. Ice, acetominphen or ibuprofen PRN. 3. Oxycodone for pain as needed. 4. Follow up with me in 10-16 days for wound check and splint removal.
--- NOTE | 2024-11-02 11:39 | P.ANES_ITS ---
Anesthesia Charges Start Date/Time Anesthesia Start Date: 11/02/24 Anesthesia Start Time: 09:23 Stop Date/Time Anesthesia Stop Date: 11/02/24 Anesthesia Stop Time: 11:49 Coding CPT Codes CPT Codes: ANESTH SURGERY OF SHOULDER - 19879 ([id number]) P2 - PATIENT W/MILD SYST DISEASE, QK - DEPUTY OF COUNTER INTELLIGENCE 2-4 CNCRNT ANES PROC, QX - DYE MIXER SVC W/ MD MED DIRECTION
--- NOTE | 2024-11-02 11:39 | W.ANESCHARGE ---
Anesthesia Charges Start Date/Time Anesthesia Start Date: 11/02/24 Anesthesia Start Time: 09:23 Stop Date/Time Anesthesia Stop Date: 11/02/24 Anesthesia Stop Time: 11:49 Coding CPT Codes CPT Codes: ANESTH SURGERY OF SHOULDER - 41080 ([id number]) P2 - PATIENT W/MILD SYST DISEASE, QK - COTTON CLEANER 2-4 CNCRNT ANES PROC, QX - CORE SHAPER SVC W/ MD MED DIRECTION
[2024-11-02] MEDS: fentaNYL 100 MCG/2 ML inj 50 MCG IVP ×3 (11:53→12:08)
--- NOTE | 2024-11-02 11:56 | P.ANES_ITS ---
Anesthesia Charges Start Date/Time Anesthesia Start Date: 11/02/24 Anesthesia Start Time: 09:23 Stop Date/Time Anesthesia Stop Date: 11/02/24 Anesthesia Stop Time: 11:49 Coding CPT Codes CPT Codes: ANESTH SURGERY OF SHOULDER - 63746 ([id number]) P2 - PATIENT W/MILD SYST DISEASE, QK - CYLINDER INSPECTOR 2-4 CNCRNT ANES PROC, QX - RETAIL VISUAL MERCHANDISER SVC W/ MD MED DIRECTION
--- NOTE | 2024-11-02 11:56 | W.ANESCHARGE ---
Anesthesia Charges Start Date/Time Anesthesia Start Date: 11/02/24 Anesthesia Start Time: 09:23 Stop Date/Time Anesthesia Stop Date: 11/02/24 Anesthesia Stop Time: 11:49 Coding CPT Codes CPT Codes: ANESTH SURGERY OF SHOULDER - 09313 ([id number]) P2 - PATIENT W/MILD SYST DISEASE, QK - BUILDING DRAFTING OFFICER 2-4 CNCRNT ANES PROC, QX - DISTRICT SERVICE MANAGER SVC W/ MD MED DIRECTION
[2024-11-02] MEDS: ACETAMINOPHEN 500 MG TABLET 1000 MG PO (12:30)
--- NOTE | 2024-11-02 12:50 | SUR.PHASEI ---
MD Mike approved DC from PACu1 to [facility] PACU 2 with pain at 12/22.
[2024-11-02] MEDS: OXYCODONE 5 MG TABLET PO (13:36)
== END 2024-11-02 14:40 | disposition home or self-care (01) ==
LOC: OR 07:21
PROVIDERS: PCP Family Medicine; Visit Provider Orthopaedic Surgery Sports Medicine
PROC: (CPT 23515; principal; 2024-11-02 09:15)
DX: S42.021A Displaced fracture of shaft of right clavicle, initial encounter for closed fracture (principal); M81.0 Age-related osteoporosis without current pathological fracture; G47.33 Obstructive sleep apnea (adult) (pediatric); E55.9 Vitamin D deficiency, unspecified; E03.9 Hypothyroidism, unspecified; E78.5 Hyperlipidemia, unspecified
CPT/HCPCS: 23515; 00450; 73000; A9270; C1713; J0330; J0690; J1100; J1885; J2371; J2405; J2704; J2710; J3010; J3490; J7120